=== PATIENT | female | born 1985 | race Native Hawaiian/Other Pacific Islander ===

== ENCOUNTER 2018-02-09 11:51 | Emergency (ER) | payer OTHER ==
[2018-02-09 13:23] LABS: Bilirubin,Urine NEG (Negative); Blood,Urine NEG (Negative); Color,Urine Yellow (Yellow); Mucus,Urine FEW /HPF; Protein,Urine <15 mg/dL mg/dL (Negative); Urobilinogen,Urine < 2.0 mg/dL (<2.0)
[2018-02-09 13:25] LABS: HCG Qualitative,Urine Positive (Negative); WBC,Urine < 1.0 /HPF (0.0-6.0)
[2018-02-09] MEDS ORDERED: TYLENOL #3 PO ONE (17:02)
[2018-02-09] MEDS ORDERED: ZOFRAN ODT PO ONE (17:03)
--- NOTE | 2018-02-09 17:04 | Emergency Department Report ---
HPI - HPI HPI: Patient is a 32-year-old female who is here with her presents to ED complaining of mid to lower pelvic pain 1 day. Patient has been states that she had a miscarriage January 22 2018. Patient states there is seen a GRAIN UNLOADER MACHINE told her that her 7 weeks needed to be induced. Patient states that she was given a shot and some medicine in her vagina to expel the . Patient states she bled for about a week and is no longer bleeding. Patient states since her miscarriage she has not pain feeling too well and his headache she's had intermittent lower pelvic pain since then. Patient states she took some Tylenol earlier today that gave her some relief. She denies fevers/chills/ chest pain/shortness of breath/dizziness/bleeding or anemia problems <WANG CHU - Last Filed: 02/09/18 18:02> <MAGALIS HUBBARD - Last Filed: 02/09/18 22:15> - General Chief Complaint: Abdominal Pain Time Seen by Provider: 02/09/18 16:48 ED Past Medical Hx - Past Medical History Previous Medical History?: No - Surgical History Past Surgical History?: Yes Additional Surgical History: - Social History Smoking Status: Never Smoker Substance Use Type: None <WANG CHU - Last Filed: 02/09/18 18:02> <MAGALIS HUBBARD - Last Filed: 02/09/18 22:15> - Medications Home Medications: Home Medications Medication Instructions Recorded Confirmed Last Taken Type traMADol [Ultram] 50 mg PO Q6HR PRN #12 tablet 02/09/18 Unknown Rx ED Review of Systems ROS: Stated complaint: VAGINAL BLEEDING/HEADACHE Other details as noted in HPI Constitutional: denies: chills, fever Eyes: denies: eye pain, eye discharge, vision change ENT: denies: ear pain, throat pain Respiratory: denies: cough, shortness of breath, wheezing Cardiovascular: denies: chest pain, palpitations Endocrine: no symptoms reported Gastrointestinal: nausea. denies: abdominal pain, vomiting, diarrhea, constipation Genitourinary: denies: urgency, dysuria, discharge Musculoskeletal: denies: back pain, joint swelling, arthralgia, myalgia Skin: denies: rash, lesions Neurological: denies: headache, weakness, numbness, paresthesias Psychiatric: denies: anxiety, depression Hematological/Lymphatic: denies: easy bleeding, easy bruising <WANG CHU - Last Filed: 02/09/18 18:02> ROS: Stated complaint: VAGINAL BLEEDING/HEADACHE Other details as noted in HPI <MAGALIS HUBBARD - Last Filed: 02/09/18 22:15> Physical Exam - Physical Exam Vital Signs: Vital Signs 02/09/18 12:05 Temperature 97.8 F Pulse Rate 70 Respiratory 18 Rate Blood Pressure 94/52 O2 Sat by Pulse 99 Oximetry Physical Exam: GENERAL: Alert and oriented x3, no apparent distress, Normal Gait, atraumatic. HEAD: Head is normocephalic and a-traumatic. EYES: Extra ocular muscles are intact. Pupils are equal, round, and reactive to light and accommodation. NECK: Supple. LUNGS: Symetrical with respiration, No wheezing, no rales or crackles, CTAB. HEART: S1, S2 present, regular rate and rhythm without murmur, no rubs, no gallops. Non tender to palpation ABDOMEN: No organomegaly was noted,Positive bowel sounds, soft, and non- distended. . Nontender to palpation on all Quadrants, NO CVA tenderness. SKIN: Warm and dry, No lesions, No ulceration or induration present. <WANG CHU - Last Filed: 02/09/18 18:02> - Physical Exam Vital Signs: Vital Signs 02/09/18 02/09/18 12:05 18:58 Temperature 97.8 F Pulse Rate 70 Respiratory 18 18 Rate Blood Pressure 94/52 O2 Sat by Pulse 99 Oximetry <MAGALIS HUBBARD - Last Filed: 02/09/18 22:15> ED Course Vital Signs 02/09/18 12:05 Temperature 97.8 F Pulse Rate 70 Respiratory 18 Rate Blood Pressure 94/52 O2 Sat by Pulse 99 Oximetry <WANG CHU - Last Filed: 02/09/18 18:02> Vital Signs 02/09/18 02/09/18 12:05 18:58 Temperature 97.8 F Pulse Rate 70 Respiratory 18 18 Rate Blood Pressure 94/52 O2 Sat by Pulse 99 Oximetry <MAGALIS HUBBARD - Last Filed: 02/09/18 22:15> ED Medical Decision Making - Medical Decision Making 32-year-old female presents status post induced miscarriage from 01/22/2018 Parents to test positive, discussed the patient is probably due to due to decreased miscarriage and not current . Urinalysis is negative. Ultrasound ordered <WANG CHU - Last Filed: 02/09/18 18:02> - Lab Data Result diagrams: 02/09/18 21:10 02/09/18 21:10 Laboratory Tests 02/09/18 02/09/18 02/09/18 12:23 21:10 21:10 WBC 8.6 RBC 4.26 Hgb 13.4 Hct 38.0 MCV 89 MCH 32 MCHC 35 H RDW 13.7 Plt Count 294 Lymph % (Auto) 32.4 [place] % (Auto) 5.8 Eos % (Auto) 1.2 Baso % (Auto) 0.7 Lymph # 2.8 [place] # 0.5 Eos # 0.1 Baso # 0.1 Seg Neutrophils % 59.9 Seg Neutrophils # 5.1 PT 13.2 INR 0.95 APTT 26.9 Sodium Chloride Carbon Dioxide BUN Creatinine Estimated GFR BUN/Creatinine Ratio Glucose Calcium Total Bilirubin Total Protein Albumin Albumin/Globulin Ratio Lipase Urine Color Yellow Urine Turbidity Slightly-cloudy Urine pH 5.0 Ur Specific [place] 1.016 Urine Protein <15 mg/dl Urine Glucose (UA) Neg Urine Ketones Neg Urine Blood Neg Urine Nitrite Neg Urine Bilirubin Neg Urine Urobilinogen < 2.0 Ur Leukocyte Esterase Neg Urine WBC (Auto) < 1.0 Urine RBC (Auto) 1.0 U Epithel Cells (Auto) 6.0 Urine Mucus Few Urine HCG, Qual Positive A 02/09/18 21:10 WBC RBC Hgb Hct MCV MCH MCHC RDW Plt Count Lymph % (Auto) [place] % (Auto) Eos % (Auto) Baso % (Auto) Lymph # [place] # Eos # Baso # Seg Neutrophils % Seg Neutrophils # PT INR APTT Sodium 135 L Chloride 100.3 Carbon Dioxide 22 BUN 3 L Creatinine 0.4 L Estimated GFR > 60 BUN/Creatinine Ratio 8 Glucose 80 Calcium 9.0 Total Bilirubin 0.30 Total Protein 8.1 Albumin 4.4 Albumin/Globulin Ratio 1.2 Lipase 272 H Urine Color Urine Turbidity Urine pH Ur Specific [place] Urine Protein Urine Glucose (UA) Urine Ketones Urine Blood Urine Nitrite Urine Bilirubin Urine Urobilinogen Ur Leukocyte Esterase Urine WBC (Auto) Urine RBC (Auto) U Epithel Cells (Auto) Urine Mucus Urine HCG, Qual - Radiology Data Radiology results: report reviewed, image reviewed noted IUP 8 weeks no heart tones, - Medical Decision Making consulted OBGYN DX Retain Tissue, plan admit to OBGYN for DNC , consulted answered by Computer Operations Technician, will page Dr. Quintanilla to evaluate patient for possible OR for DNC or other tx plan as necessary by OBGYN, Dr. Quintanilla recommedation obtain labs, if not septic dc to for follow up with pt'd own OBGYN Dr. Velvet Griffin, , if septic will reconsult for admission. discussed same with patient and familyranda ford verbalized agreement and understanding of same. 2222: Labs note a normal UA was normal CBC normal CMP and lipase at 270 I would not likely cause of pain patient was tolerating by mouth intake there is no nausea vomiting reports no GERD symptoms plan patient will follow up in [address] Velvet Griffin MD, pt and verbalized agreement and understanding of same. <MAGALIS HUBBARD - Last Filed: 02/09/18 22:15> Critical care attestation.: If time is entered above; I have spent that time in minutes in the direct care of this critically ill patient, excluding procedure time. <WANG CHU - Last Filed: 02/09/18 18:02> Critical care attestation.: If time is entered above; I have spent that time in minutes in the direct care of this critically ill patient, excluding procedure time. <MAGALIS HUBBARD - Last Filed: 02/09/18 22:15> ED Disposition Is pt being admited?: No Does the pt Need Aspirin: No <WANG CHU - Last Filed: 02/09/18 18:02> Time of Disposition: 22:15 <MAGALIS HUBBARD - Last Filed: 02/09/18 22:15> Clinical Impression: Retained tissue Abdominal pain Qualifiers: Abdominal location: generalized Qualified Code(s): R10.84 - Generalized abdominal pain Disposition: OP ADMIT IP TO THIS HOSP Condition: Stable Instructions: Abdominal Pain (ED) Additional Instructions: Follow up with Dr. Velvet Griffin in 2 days [phone] Prescriptions: traMADol [Ultram] 50 mg PO Q6HR PRN #12 tablet PRN Reason: Pain Forms: Work/School Release Form(ED)
--- NOTE | 2018-02-09 19:37 | Ultrasound Report ---
FINAL REPORT EXAM: US OB TRANSVAGINAL HISTORY: pelvic pain the patient reports miscarriage of a 7 week January 31, 2018. Was given medication for miscarriage. Not feeling well. TECHNIQUE: Transvaginal grayscale and color-flow imaging of the pelvis was performed. Comparison: Transabdominal study also performed today FINDINGS: The uterus measures 12.8 centimeters x 6.1 centimeters x 2.4 centimeters. There is demonstration of an intrauterine gestation with estimated gestational age by measurements of crown-rump length of 8 weeks. No cardiac activity is demonstrated utilizing color flow or M-mode imaging. There is a large heterogeneous hyperechoic mass within the uterus that has the appearance of a heterogeneous enlarged placenta. There is no definite evidence of increased vascularity in this structure to definitively suggest the presence of a molar . The cervix is closed. The right ovary measures 14.4 centimeters x 8.1 centimeters x 13.3 centimeters and contains an approximately 12 centimeters cystic mass. Flow is demonstrated in the right ovary utilizing color flow imaging. The The left ovary measures 4.1 centimeters x 1.5 centimeters x 3.3 centimeters and is unremarkable in appearance. The left ovary is not investigated with color flow imaging on this portion of the study. IMPRESSION: 1. Intrauterine gestation with estimated gestational age of 8 weeks by measurements of crown-rump length. No cardiac activity is demonstrated by color flow or M-mode imaging. 2. Hyperechoic mass within the uterus that is heterogeneous in appearance and has the appearance of an enlarged placenta. There is no definite evidence of increased vascularity within this structure to definitively suggest the presence of a molar gestation. However, a molar gestation needs to be considered. Correlation with beta HCG is recommended. 3. Approximately 12 centimeter cyst right ovary.
--- NOTE | 2018-02-09 19:42 | Ultrasound Report ---
FINAL REPORT EXAM: US OB < = 14 WEEKS FETUS HISTORY: pelvic pain TECHNIQUE: Transabdominal grayscale and color-flow imaging of the pelvis was performed. Comparison: Transvaginal study also performed today FINDINGS: There is demonstration of an intrauterine gestation. Estimated gestational age by measurements of crown-rump length is 8 weeks. No cardiac activity is demonstrated by color flow or M-mode imaging. There is a hyperechoic heterogeneous mass within the uterus that has the appearance of an enlarged placenta. There is no demonstration of prominent flow on color-flow imaging to definitively suggest the presence of a molar gestation.. There is an approximately 6 centimeter x 9.2 centimeter by 5.8 centimeter cystic structure in the right ovary. The left ovary is not clearly visualized on the transabdominal study. IMPRESSION: 1. Demonstration of an intrauterine gestation with estimated gestational age of 8 weeks by measurement of crown-rump length. No cardiac activity is demonstrated. 2. Hyperechoic mass within the uterus that has the appearance of an enlarged placenta. There is no definite evidence of a molar gestation, however, due to the heterogeneous appearance, a molar gestation cannot be excluded. Correlation with beta HCG will be helpful. 3. Right ovarian cyst. The please see report of transvaginal study also performed today.
[2018-02-09 21:12] VITALS: BP 94/46
[2018-02-09 21:38] LABS: Basophils # (Auto) 0.1 K/mm3 (0.0-0.1); Basophils % (Auto) 0.7 % (0.0-1.8); Eosinophils # (Auto) 0.1 K/mm3 (0.0-0.4); Eosinophils % (Auto) 1.2 % (0.0-4.3); Hemoglobin 13.4 gm/dl (10.1-14.3); Lymphocytes # (Auto) 2.8 K/mm3 (1.2-5.4); Lymphocytes % (Auto) 32.4 % (13.4-35.0); Mean Corpuscular HGB Conc 35 % (30-34); Mean Corpuscular Hemoglobin 32 pg (28-32); Mean Corpuscular Volume 89 fl (79-97); Monocytes # (Auto) 0.5 K/mm3 (0.0-0.8); Monocytes % (Auto) 5.8 % (0.0-7.3); Platelet Count 294 K/mm3 (140-440); Red Blood Count 4.26 M/mm3 (3.65-5.03); Red Cell Distribution Width 13.7 % (13.2-15.2)
[2018-02-09 21:49] LABS: INR 0.95 (0.87-1.13)
[2018-02-09 21:50] LABS: Partial Thromboplastin Time 26.9 Sec. (24.2-36.6)
[2018-02-09 22:40] LABS: BUN/Creatinine Ratio TNR; Blood Urea Nitrogen TNR mg/dL (7-17)
[2018-02-09 22:41] LABS: Alanine Aminotransferase TNR units/L (7-56); Albumin TNR g/dL (3.9-5); Calcium TNR mg/dL (8.4-10.2)
[2018-02-09 22:42] LABS: Hemolysis Index TNR; Lipase TNR units/L (13-60)
== END 2018-02-09 22:40 | disposition admitted as inpatient to this hospital (09) ==
LOC: ED 11:51
DX: R10.84 Generalized abdominal pain (principal)
CPT/HCPCS: 36415; 76801; 76817; 80053; 81001; 81025; 85025; 85610; 85730; 86850; 86900; 86901; Q0162